=== PATIENT | male | born 1975 | race Caucasian/White ===

== ENCOUNTER 2023-06-18 14:21 | Emergency (ER) | payer SELFPAY ==
[~2023-06-18] VITALS: Ht 167.6 cm; Wt 115.7 kg
[2023-06-18 15:28] VITALS: BP 120/62; PULSE 99; RESP 18; TEMP 98.3; O2SAT 100
[2023-06-18] MEDS ORDERED: BENZ200C4 PO (16:00)
[2023-06-18] MEDS ORDERED: PSEU-250 PO (16:00)
[2023-06-18] MEDS ORDERED: IBUP-2213 PO (16:06)
[2023-06-18 16:10] VITALS: BP 120/62; PULSE 99; RESP 18; TEMP 98.3; O2SAT 100
[2023-06-18 17:23] LABS: FLU A ANTIGEN negative (NEGATIVE); FLU B ANTIGEN negative (NEGATIVE)
== END 2023-06-18 16:11 | disposition home or self-care (01) ==
LOC: EDBD 14:21 → MED 14:21
DX: J06.9 Acute upper respiratory infection, unspecified (principal); Z20.822 Contact with and (suspected) exposure to COVID-19; Z79.899 Other long term (current) drug therapy
CPT/HCPCS: 71045; 99284